=== PATIENT | female | born 1985 | race Caucasian/White ===

== ENCOUNTER 2016-11-02 10:59 | Emergency (ER) | payer BC ==
[~2016-11-02] VITALS: Ht 175.3 cm; Wt 74.4 kg
[~2016-11-02 10:59] MED LIST: FOLIC ACID1 MG PO; IBUPROFEN200 MG PO; NORCO 5-325 TA1 EACH PO; TREXALL10 MG PO
[2016-11-02] MEDS ORDERED: TRAMADOL HCL50 MG PO (11:17)
[2016-11-02] MEDS ORDERED: METHOTREXATE2.5 MG PO (11:17)
[2016-11-02] MEDS ORDERED: MUPIROCIN22 GM TOP (11:36)
== END 2016-11-02 11:41 | disposition home or self-care (01) ==
LOC: ED 10:59
DX: S99.922A Unspecified injury of left foot, initial encounter (principal); S99.921A Unspecified injury of right foot, initial encounter; X58.XXXA Exposure to other specified factors, initial encounter; Z90.710 Acquired absence of both cervix and uterus; Z87.891 Personal history of nicotine dependence; Z98.51 Tubal ligation status; Z79.899 Other long term (current) drug therapy
CPT/HCPCS: 99283

== ENCOUNTER 2017-05-18 21:35 | Emergency (ER) | payer BC ==
[~2017-05-18] VITALS: Ht 175.3 cm; Wt 68.0 kg
[~2017-05-18 21:35] MED LIST changes: +METHOTREXATE2.5 MG PO; +MUPIROCIN22 GM TOP; +TRAMADOL HCL50 MG PO
[2017-05-18] MEDS ORDERED: [UNRECOGNIZED DRUG - OTHER] IM (21:45)
[2017-05-19] MEDS ORDERED: NORCO 5-325 TA1 EACH PO (00:45)
== END 2017-05-19 01:18 | disposition home or self-care (01) ==
LOC: ED 21:35
DX: N83.201 Unspecified ovarian cyst, right side (principal); F17.200 Nicotine dependence, unspecified, uncomplicated; Z90.710 Acquired absence of both cervix and uterus; Z98.51 Tubal ligation status
CPT/HCPCS: 74176; 76830; 76856; 80053; 81001; 83690; 85025; 96374; 96375; 99284; J1885; J2270; J2405